=== PATIENT | male | born 1965 | race Caucasian/White ===

== ENCOUNTER 2018-02-10 20:55 | Emergency (ER) | payer SELFPAY ==
[2018-02-10 21:03] VITALS: BMI 29.3
[2018-02-10 21:57] LABS: BASOPHILS % (AUTO) 0.3 % (0.2-1.0); EOSINOPHILS # (AUTO) 0.2 x10^3/uL (0.0-0.2); EOSINOPHILS % (AUTO) 1.2 % (0.9-2.9); HEMATOCRIT 43.8 % (42.0-54.0); HEMOGLOBIN 15.4 g/dL (13.5-18.0); LYMPHOCYTES # (AUTO) 2.1 X10^3/uL (1.3-2.9); MEAN CORPUSCULAR HGB CONC 35.3 g/dL (33.0-35.0); MEAN CORPUSCULAR VOLUME 85.1 fL (80.0-100.0); MEAN PLATELET VOLUME 7.7 fL (7.4-11.0); MONOCYTES # (AUTO) 1.3 x10^3/uL (0.3-0.8); MONOCYTES % (AUTO) 9.1 % (0.0-13.0); NEUTROPHILS # (AUTO) 10.3 x10^3/uL (2.2-4.8); NEUTROPHILS % (AUTO) 74.4 % (42.0-75.0); PLATELET COUNT 234 X10^3/uL (150.0-450.0); RED BLOOD COUNT 5.14 X10^6/uL (4.7-6.0); RED CELL DISTRIBUTION WIDTH 13.9 % (11.6-16.5); WHITE BLOOD COUNT 13.9 X10^3/uL (3.6-10.0)
[2018-02-10 22:05] LABS: AMMONIA < 10 umol/L (11-32)
[2018-02-10 22:06] LABS: SERUM ACETONE NEGATIVE (NEGATIVE)
[2018-02-10 22:09] LABS: LACTIC ACID 1.2 mmol/L (0.4-2.0)
[2018-02-10 22:10] LABS: B-TYPE NATRIURETIC PEPTIDE 8.4 pg/mL (0-79); BLOOD UREA NITROGEN 14 mg/dL (7-18); CALCIUM 8.7 mg/dL (8.5-10.1); CHLORIDE 100 mmol/L (98-107); COR NA(FOR HYPERGLY) 135 mmol/L (136-145); CREATININE 0.99 mg/dL (0.70-1.30); SODIUM 135 mmol/L (136-145); TROPONIN I < 0.02 ng/mL (0-1.5); eGFR BLACK RACES > 60 (>60); eGFR NON BLACK RACES > 60 (>60)
[2018-02-10 22:14] LABS: ALANINE AMINOTRANSFERASE 37 Units/L (12-78); ALBUMIN 3.7 g/dL (3.4-5.0); ALKALINE PHOSPHATASE 87 Units/L (46-116); ASPARTATE AMINO TRANSFERASE 20 Units/L (15-37); CKMB % 0.8 % (<4); CREATINE KINASE 119 Units/L (39-308); CREATINE KINASE MB < 1.0 ng/mL (0-4.0); LIPASE 1095 Units/L (73-393); MAGNESIUM 1.9 mg/dL (1.7-2.9); TOTAL PROTEIN 7.3 g/dL (6.4-8.2)
[2018-02-10 22:37] LABS: ERYTHROCYTE SEDIMENTATION RATE 4 MM/HOUR (0-15)
[2018-02-10] MEDS ORDERED: NS 100 ML IV 100 ML IV ONE (22:58)
--- NOTE | 2018-02-10 23:17 | DR.GENAD ---
HPI - PCP Primary Care Physician: NFD - Complaint/Symptoms Chief Complaint Doctors Comments: symptoms began yesterday with bilat earlobe swelling, today swelling has moved to both forearms and hands. Also noted some SOB but pt not SOB in ER now. No CXP. Pt also feels sleepy, 'copuldn't stay awake' but awake,alert, NAD in ER tonight. Chief Complaint:: HAND SWELLING CAN'T STAY AWAKE, - Nurses notes reviewed Nurses Notes Review: Yes - Source History Provided: Patient - Mode of Arrival Mode of Arrival: Ambulatory - Timing Onset of Chief Complaint: 02/09/18 Came on: Gradually PMH - PMH Past Medical History: Yes Past Medical History: Anxiety, Hypertension Past Medical History Comment: ANITSOCIAL DISORDER Past Surgical History: Yes Surgical History: Appendectomy - Family History History of Family Medical Conditions: Yes Family Medical History: [place], Hypertension - Social History Does patient currently use any type of tobacco product: Yes Have you used tobacco products in the last 12 months: Yes Type of Tobacco Use: Cigarettes Does any household member use tobacco: No Alcohol Use: None Do you use any recreational Drugs:: No Lives With: Family Lives Where: Home - infectious screening In the last 2 months have you had wt loss of >10#?: NO Have you had fever, night sweats or hemotysis?: No Have you traveled outside the country in the last 6 months?: No Isolation: Standard ROS - Review of Systems Constitutional: Fatigue, Loss of Appetite Eyes: No Symptoms Reported Respiratoy: Short of Breath (not SOB now but has been) Cardiovascular: Edema Gastrointestinal/Abdominal: No Symptoms Reported. negative: Abdominal Pain Genitourinary: No Symptoms Reported Neurological: Emotional Problems, Other (somnolence since symptoms started) Musculoskeletal: Right, Left, Forearm, Hand Hematologic/Lymphatic: No Symptoms Reported Endocrine: Decreased Appetite Psychiatric: No Symptoms Reported All Other Systems: Reviewed and Negative PE - Vital Signs Vitals: Temperature 99.4 F Pulse Rate [Right] 92 Pulse Rate 88 Respiratory Rate 18 Blood Pressure [Left Arm] 119/73 Blood Pressure 133/82 O2 Sat by Pulse Oximetry 96 - General Limitations: No Limitations General Appearance: Alert, In No Apparent Distress - Head Head Exam: Normal Inspection, Normocephalic (earlobes not swollen ) - Eyes Eye exam: Normal Appearance, PERRL - ENT ENT Exam: Normal Exam, Normal Oropharynx, Normal External Ear Exam Mouth Exam: Normal Inspection Throat Exam: Normal Inspection - Neck Neck Exam: Normal Inspection, Full ROM, Trachea Midline. negative: Tenderness, Meningismus, Lymphadenopathy, Thyromegaly - Chest Chest Inspection: Normal Inspection, Symmetric Chest Wall Rise. negative: Tenderness - Respiratory Respiratory Exam: Normal Lung Sounds Bilat Respiratory Exam: Bilateral Clear to Auscultation - Cardiovascular Cardiovascular Exam: Regular Rate, Normal Rhythm, Normal Heart Sounds. negative : Systolic Murmur, Diastolic Murmur - Abdominal Exam Abdominal Exam: Normal Inspection, Normal Bowel Sounds, Soft. negative: Tenderness, Guarding, Rebound - Extremities Extremities Exam: Normal Capillary Refill, Edema (2+edema both hands and both wrists) - Neurologic Neurological Exam: Alert, Oriented X3 - Psychiatric Psychiatric Exam: Normal Affect, Normal Mood - Skin Skin Exam: Warm, Dry, Intact. negative: Cyanosis, Erythema, Pallor, Mottled ROR - Labs Reviewed Laboratory Results Reviewed?: Yes (lipase 1095, ddimer 3120, ESR 4) Result Diagrams: 02/10/18 21:45 02/10/18 21:45 Laboratory: WBC 13.9 X10^3/uL (3.6-10.0) H 02/10/18 21:45 RBC 5.14 X10^6/uL (4.7-6.0) 02/10/18 21:45 Hgb 15.4 g/dL (13.5-18.0) 02/10/18 21:45 Hct 43.8 % (42.0-54.0) 02/10/18 21:45 MCV 85.1 fL (80.0-100.0) 02/10/18 21:45 MCH 30.0 pg (27.0-34.0) 02/10/18 21:45 MCHC 35.3 g/dL (33.0-35.0) H 02/10/18 21:45 RDW 13.9 % (11.6-16.5) 02/10/18 21:45 Plt Count 234 X10^3/uL (150.0-450.0) 02/10/18 21:45 MPV 7.7 fL (7.4-11.0) 02/10/18 21:45 Neut % (Auto) 74.4 % (42.0-75.0) 02/10/18 21:45 Lymph % (Auto) 15.0 % (21.0-51.0) L 02/10/18 21:45 [place] % (Auto) 9.1 % (0.0-13.0) 02/10/18 21:45 Eos % (Auto) 1.2 % (0.9-2.9) 02/10/18 21:45 Baso % (Auto) 0.3 % (0.2-1.0) 02/10/18 21:45 Neut # (Auto) 10.3 x10^3/uL (2.2-4.8) H 02/10/18 21:45 Lymph # (Auto) 2.1 X10^3/uL (1.3-2.9) 02/10/18 21:45 [place] # (Auto) 1.3 x10^3/uL (0.3-0.8) H 02/10/18 21:45 Eos # (Auto) 0.2 x10^3/uL (0.0-0.2) 02/10/18 21:45 Baso # (Auto) 0.0 X10^3/uL (0.0-0.1) 02/10/18 21:45 Absolute Nucleated RBC 0.0 /100WBC 02/10/18 21:45 ESR 4 MM/HOUR (0-15) 02/10/18 21:45 INR Target Range - 02/10/18 21:45 INR 0.97 (0.8-1.3) 02/10/18 21:45 APTT 28.1 SECONDS (22.9-36.5) 02/10/18 21:45 PTT Comment - 02/10/18 21:45 D-Dimer 3120 ng/mL (0-400) H* 02/10/18 21:45 Sodium 135 mmol/L (136-145) L 02/10/18 21:45 Corrected Sodium 135 mmol/L (136-145) L 02/10/18 21:45 Potassium 3.8 mmol/L (3.5-5.1) 02/10/18 21:45 Chloride 100 mmol/L (98-107) 02/10/18 21:45 Carbon Dioxide 29.0 mmol/L (21-32) 02/10/18 21:45 BUN 14 mg/dL (7-18) 02/10/18 21:45 Creatinine 0.99 mg/dL (0.70-1.30) 02/10/18 21:45 Est GFR (MDRD) Af Amer > 60 (>60) 02/10/18 21:45 Est GFR (MDRD) Non-Af > 60 (>60) 02/10/18 21:45 Glucose 113 mg/dL (65-99) H 02/10/18 21:45 Lactic Acid 1.2 mmol/L (0.4-2.0) 02/10/18 21:45 Calcium 8.7 mg/dL (8.5-10.1) 02/10/18 21:45 Corrected Calcium TNP 02/10/18 21:45 Magnesium 1.9 mg/dL (1.7-2.9) 02/10/18 21:45 Total Bilirubin 0.60 mg/dL (0.2-1.0) 02/10/18 21:45 AST 20 Units/L (15-37) 02/10/18 21:45 ALT 37 Units/L (12-78) 02/10/18 21:45 Alkaline Phosphatase 87 Units/L (46-116) 02/10/18 21:45 Ammonia < 10 umol/L (11-32) L 02/10/18 21:45 Creatine Kinase 119 Units/L (39-308) 02/10/18 21:45 CK-MB (CK-2) < 1.0 ng/mL (0-4.0) 02/10/18 21:45 CK/CKMB % Calc 0.8 % (<4) 02/10/18 21:45 Troponin I < 0.02 ng/mL (0-1.5) 02/10/18 21:45 B-Natriuretic Peptide 8.4 pg/mL (0-79) 02/10/18 21:45 Total Protein 7.3 g/dL (6.4-8.2) 02/10/18 21:45 Albumin 3.7 g/dL (3.4-5.0) 02/10/18 21:45 Globulin 3.6 g/dL (2.5-4.5) 02/10/18 21:45 Albumin/Globulin Ratio 1.0 Ratio (1.1-2.1) L 02/10/18 21:45 Lipase 1095 Units/L (73-393) H 02/10/18 21:45 Specimen Type Clean catch urine 02/10/18 23:44 Urine Color Yellow (YELLOW) 02/10/18 23:44 Urine Appearance Clear (CLEAR) 02/10/18 23:44 Urine pH 5.0 (5.0 - 8.0) 02/10/18 23:44 Ur Specific [place] 1.015 (1.000-1.030) 02/10/18 23:44 Urine Protein Negative (NEGATIVE) 02/10/18 23:44 Urine Glucose (UA) Negative (NEGATIVE) 02/10/18 23:44 Urine Ketones Negative (NEGATIVE) 02/10/18:44 Urine Occult Blood 4+ (NEGATIVE) 02/10/18 23:44 Urine Nitrite Negative (NEGATIVE) 02/10/18:44 Urine Bilirubin Negative (NEGATIVE) 02/10/18 23:44 Urine Urobilinogen Normal (NORMAL) 02/10/18 23:44 Ur Leukocyte Esterase Negative (NEGATIVE) 02/10/18 23:44 Urine RBC 0-2 /HPF (NONE SEEN) 02/10/18 23:44 Urine WBC 0-2 /HPF (NONE SEEN) 02/10/18 23:44 Ur Squamous Epith Cells Few /HPF (NEGATIVE) 02/10/18 23:44 Urine Bacteria Negative /HPF (NEGATIVE) 02/10/18 23:44 Ur Culture Indicated? No/not indicated 02/10/18 23:44 Urine Opiates Screen Negative (NEG=<300) 02/10/18 23:44 Urine Methadone Screen Negative (NEG=<300) 02/10/18 23:44 Ur Barbiturates Screen Negative (NEG=<200) 02/10/18 23:44 Ur Phencyclidine Scrn Negative (NEG=<25) 02/10/18 23:44 Ur Amphetamines Screen Negative (NEG=<1000) 02/10/18 23:44 U Benzodiazepines Scrn Negative (NEG=<200) 02/10/18 23:44 Urine Cocaine Screen Negative (NEG=<300) 02/10/18 23:44 U Marijuana (THC) Screen Negative (NEG=<50) 02/10/18:44 Acetone, Semi-Quant Negative (NEGATIVE) 04/21/18 21:45 - XRAY XRAY Interpreted by: Radiologist XRAY Findings: CTA chest(carried thru pancreas) nonacute - Diagnosis Discharge Problem: Serum lipase elevation, Elevated d-dimer, Swelling of both upper extremities - Discharge Plan Disposition: XFER [facility]M HOSP Condition: Stable - Follow ups/Referrals Follow ups/Referrals: NFD,None [Primary Care Provider] - 3 days - Instructions Additional Notes - Additional Notes Additional Notes: Spoke at length with Dr Hughes, hospitalist [facility], and reviewed presentation and results of workup. Etiology unclear. Dr Hughes agrees to accept pt in transfer for further evaluation, pt agrees to transfer.
[2018-02-10 23:55] LABS: BILIRUBIN,URINE NEGATIVE (NEGATIVE); BLOOD/HEMOGLOBIN,URINE 4+ (NEGATIVE); GLUCOSE, URINE NEGATIVE (NEGATIVE); KETONES,URINE NEGATIVE (NEGATIVE); LEUKOCYTE ESTERASE ,URINE NEGATIVE (NEGATIVE); NITRITES,URINE NEGATIVE (NEGATIVE); PROTEIN,URINE NEGATIVE (NEGATIVE); UROBILINOGEN,URINE NORMAL (NORMAL)
--- NOTE | 2018-02-10 23:55 | CT ---
CTA chest Indication: Extremity swelling, elevated D-dimer, elevated white count Comparison: None Technique: CT images of the chest were obtained with contrast. Automatic exposure control was utilize d. MIP images provided. Findings: No aggressive osseous lesions. Images through the upper abdomen demonstrate hepatic steatos is. Normal heart size, without pericardial thickening or pericardial effusion. No suspicious intrathoraci c lymph nodes identified. The thoracic aorta is grossly normal for technique. No pulmonary arterial f illing defect is identified. The lungs are clear. No pleural effusion or pneumothorax. The major airw ays are patent. Impression: No evidence for PTE. No acute chest process. Reported By:
[2018-02-11 00:03] LABS: APPEARANCE,URINE CLEAR (CLEAR); COLOR,URINE YELLOW (YELLOW); RBC,URINE 0-2 /HPF (NONE SEEN)
[2018-02-11 00:04] LABS: BACTERIA,URINE NEGATIVE /HPF (NEGATIVE); SQUAMOUS EPITHELIAL CELL,UR FEW /HPF (NEGATIVE)
[2018-02-11 00:54] VITALS: BP 119/73
== END 2018-02-11 01:10 | disposition short-term general hospital (02) ==
LOC: ER 20:55
DX: R79.1 Abnormal coagulation profile (principal); R74.8 Abnormal levels of other serum enzymes; R22.31 Localized swelling, mass and lump, right upper limb
CPT/HCPCS: 36415; 71275; 80053; 80307; 81001; 82009; 82140; 82550; 82553; 83605; 83690; 83735; 83880; 84484; 85025; 85378; 85610; 85652; 85730; 96365; 99285; A4222; G0434